=== PATIENT | male | born 1985 | race Caucasian/White ===

== ENCOUNTER → 2016-12-20 | Outpatient (CLI) | payer MEDICAID ==
[~2016-12-20] MED LIST: ABILIFY5 MG PO; ASCORBIC ACID500 MG PO; BACITRACIN--O.0.9 GM TP; FEOSOL325 MG PO; HYDROCODON-ACE1 EAC2 PO; HYDROCODON-ACE1 EAC6 PO; LEXAPRO DPS10 MG PO; SENOKOT S1 TAB PO; VITAMIN D3400 UNIT PO
== END | disposition home or self-care (01) ==
LOC: RAD.S 15:42
DX: M79.1 Myalgia (principal); M51.26 Other intervertebral disc displacement, lumbar region

== ENCOUNTER 2016-12-21 17:14 | Emergency (ER) | payer MEDICAID ==
--- NOTE | 2016-12-29 08:11 | ER ---
ADMIT: 12/21/2016 RM/LOC: ER [facility] MR#: [id number] 2620 [facility] [address] [place] [phone] KENNEDY ROCHA [address] [place] [address] Emergency Room Report SEX: M AGE: 31 : 1985 DATE: 12/21/2016 HISTORY OF PRESENT ILLNESS: A 31-year-old gentleman, who was working around 3:00 this afternoon when a piece of wood flew back. He describes it about a 2- inch square piece of wood flew back and struck him in the right eye. He had blurry vision since then, comes to the Emergency Department for evaluation of the same blurry eye. See T-sheet for remainder of history and physical. I did speak with Dr. Bahena, the business objects analyst, who said he would come in, but it would take approximately 1 hour, I discussed this with the patient. The patient said he did not want to wait for 1 hour, but would follow up with Dr. Bahena tomorrow. Dr. Bahena can provide a home phone number and instructed the patient to call that number at 8:00 tomorrow and he would see him in the office at that time. Once again, the patient elected not to wait in the Emergency Department for Dr. Bahena to arrive stating he was in a hurry to get out of here and would follow up tomorrow with Dr. Bahena in his office. DIAGNOSIS: Eye pain, injury. Sandip Schwartz MD/ [place] JOB #: [id number] CC: Sandip Schwartz MD, Attending Physician UNKNOWN, Family Physician
[2017-02-12] MEDS ORDERED: ABILIFY5 MG PO (11:19)
[2017-02-12] MEDS ORDERED: HYDROCODON-ACE1 EAC2 PO (11:19)
[2017-02-12] MEDS ORDERED: LEXAPRO DPS10 MG PO (11:19)
[2017-02-12] MEDS ORDERED: HYDROCODON-ACE1 EAC6 PO (11:19)
[2017-02-12] MEDS ORDERED: ASCORBIC ACID500 MG PO (11:20)
[2017-02-12] MEDS ORDERED: SENOKOT S1 TAB PO (11:20)
[2017-02-12] MEDS ORDERED: FEOSOL325 MG PO (11:20)
[2017-02-12] MEDS ORDERED: BACITRACIN--O.0.9 GM TP (11:20)
[2017-02-12] MEDS ORDERED: VITAMIN D3400 UNIT PO (11:21)
== END 2016-12-21 19:00 | disposition home or self-care (01) ==
LOC: ER 17:14
DX: S05.91XA Unspecified injury of right eye and orbit, initial encounter (principal); F17.210 Nicotine dependence, cigarettes, uncomplicated; F31.9 Bipolar disorder, unspecified; F41.9 Anxiety disorder, unspecified; Z88.1 Allergy status to other antibiotic agents; Z91.013 Allergy to seafood; W45.8XXA Other foreign body or object entering through skin, initial encounter

== ENCOUNTER → 2017-01-16 | Outpatient (CLI) | payer MEDICAID | END | disposition home or self-care (01) | LOC: RAD.S 09:37 | DX: M54.2 Cervicalgia (principal); R20.0 Anesthesia of skin ==

== ENCOUNTER 2017-01-19 13:36 | Emergency (ER) | payer MEDICAID ==
--- NOTE | 2017-01-25 11:01 | ER ---
ADMIT: 01/19/2017 RM/LOC: ER [facility] MR#: [id number] 2620 [facility] [address] [place] [phone] KENNEDY ROCHA [facility] [place] [address] Emergency Room Report SEX: M AGE: 31 : 1985 DATE: 01/19/2017 ADDENDUM: This is a 31-year-old, white male, coming with epigastric pain. It is right upper quadrant. The ultrasound was negative. His CBC, chemistry, and lipase were negative as well. At this time, his pain is fairly well under control. Also, historical notes he said that his siblings and his mother all had nonfunctioning gallbladders and had to have it taken out. At this time, I said that is still a possibility. We discharged him home with: 1. He is to start taking 300 of Zantac [id number] daily. 2. He is supposed to call the office Saturday and have someone see him so they can continue the workup with HIDA scan to know what they seen fit. Also, we gave him a little GI cocktail to see if this would help as well. He has pain medicines at home as well. I spoke with Dr. Holland about this. The patient understands. CONDITION ON DISCHARGE: Good. nAdrae Lerma MD/ [place] JOB #: [id number] CC: Andrae Lerma MD, Attending Physician Neftaly Rodriguez MD, Family Physician
[2017-02-12] MEDS ORDERED: HYDROCODON-ACE1 EAC6 PO (11:19)
[2017-02-12] MEDS ORDERED: ABILIFY5 MG PO (11:19)
[2017-02-12] MEDS ORDERED: HYDROCODON-ACE1 EAC2 PO (11:19)
[2017-02-12] MEDS ORDERED: LEXAPRO DPS10 MG PO (11:19)
[2017-02-12] MEDS ORDERED: SENOKOT S1 TAB PO (11:20)
[2017-02-12] MEDS ORDERED: ASCORBIC ACID500 MG PO (11:20)
[2017-02-12] MEDS ORDERED: FEOSOL325 MG PO (11:20)
[2017-02-12] MEDS ORDERED: BACITRACIN--O.0.9 GM TP (11:20)
[2017-02-12] MEDS ORDERED: VITAMIN D3400 UNIT PO (11:21)
== END 2017-01-19 18:00 | disposition home or self-care (01) ==
LOC: ER 13:36
DX: R10.11 Right upper quadrant pain (principal); T78.1XXA Other adverse food reactions, not elsewhere classified, initial encounter; Z88.6 Allergy status to analgesic agent

== ENCOUNTER → 2017-02-01 | Outpatient (CLI) | payer MEDICAID | END | disposition home or self-care (01) | LOC: PTH.S 08:12 | DX: Z01.818 Encounter for other preprocedural examination (principal) ==

== ENCOUNTER 2017-02-06 07:47 | Inpatient (IN) | payer MEDICAID ==
[~2017-02-06] VITALS: Ht 170.2 cm; Wt 67.6 kg
--- NOTE | ~2017-02-06 | DS ---
ADMIT: 02/06/2017 RM/LOC: 512 [facility] MR#: [id number] [address] [facility] [address] [place], [place] [phone] KENNEDY HOOD [address] [place] [address] General Discharge Summary SEX: M AGE: 31 : 1985 ADMISSION DATE: 02/06/2017 DISCHARGE DATE: 02/08/2017 SERVICE: Neurosurgery. REASON FOR ADMISSION: 1. Bulging lumbar disc. 2. Bilateral lower extremities numbness. 3. Lumbar facet degeneration. 4. Lower extremity weakness. 5. Status post diskectomy. PROCEDURE: Transforaminal lumbar interbody fusion at lumbar 4-5. HOSPITAL COURSE: Mr. Hood tolerated his procedure well. Postoperatively, he was admitted to the Med/Surg floor for monitoring and care. Postop day #1, he was awake and alert. He was oriented x4. He was afebrile and his vital signs were stable. He was moving all extremities x4 with 5/5 strength. His dressing was clean, dry, and intact. His CORY drain was patent with serosanguineous drainage. His On-Q was patent. He was questioning whether his hydrocodone would be better than the Percocet as he felt he had more relief with the hydrocodone than he was having with Percocet, therefore, he was changed back to his hydrocodone. He was voicing some concerns with his nursing care. He did work with Physical Therapy and Occupational Therapy and tolerated this quite well. He did attempt to get up on his own and reports that he lowered himself to the ground. He denied any additional back pain. Postop day #2, he was awake and alert. He was tearful. He was afebrile and his vital signs were stable. He was moving all extremities x4. His incision was clean, dry, and intact. His On-Q was leaking and was discontinued. His CORY drain was patent with decreased amount of serosanguineous drainage. This was removed without difficulty and 1 Monocryl stitch was applied to the site. He was started on some Lexapro for his tearfulness. He reports the hydrocodone was not enough for his pain, therefore, was discontinued and he was started on some Oxy-IR. His Valium was increased to q.6 hours. He continued to work with Physical Therapy and Occupational Therapy. He was evaluated by the inpatient rehabilitation unit and deemed to be an appropriate candidate for inpatient rehabilitation with a plan to return to his prior function of living status. On the day of discharge, he was deemed medically fit for transfer to the inpatient rehabilitation unit. DISCHARGE CONDITION: Good. MEDICATIONS: Colace 100 mg p.o. b.i.d., milk of magnesia 10 mL p.o. q.a.m., Senokot one tab p.o. b.i.d., Dulcolax 10 mg suppository one rectally q.a.m., bacitracin ointment to his incision q.p.m., Maalox 30 mL p.o. q.6 hours p.r.n., Tylenol 650 mg p.o. q.4 hours p.r.n., Valium 5 mg 1-2 tablets p.o. q.6 hours p.r.n., Tylenol 500 mg p.o. q.i.d., Oxy IR 10 to 30 mg p.o. q.3 hours p.r.n. pain, and Lexapro 10 mg p.o. daily. ADMIT: 02/06/2017 RM/LOC: 512 [facility] MR#: [id number] [address] [phone] KENNEDY HOOD [address] [place] [address] General Discharge Summary SEX: M AGE: 31 : 1985 DISCHARGE INSTRUCTIONS: Per Dr. Mendenhall, he can have a regular diet. He may shower, he should not take any tub baths, he should pat his incision dry. He should not take any NSAIDs. He should not lift anything greater than 15 pounds. He should not use any nicotine. He will call with any questions or concerns including neurological worsening, signs or symptoms of infection, or any other issues. FOLLOWUP: He will follow up in clinic with Ira in 2 weeks on discharge. DISPOSITION: He was discharged home. Total bkxl-ov-zsar time for the discharge planning and care coordination was 30 minutes. Ira Chin APRN / Richard Mendenhall MD / [place] JOB #: [id number] CC: Richard Mendenhall MD, Attending Physician Khanh Gustafson MD, Family Physician
--- NOTE | 2017-02-11 13:27 | OR ---
ADMIT: 02/06/2017 RM/LOC: 512 [facility] MR#: [id number] [address] [phone] KENNEDY ROCHA [address] [place], [place] [address] Operative/Delivery Room Report SEX: M AGE: 31 : 1985 SURGERY DATE: 02/06/2017 SURGEON: Richard Mendenhall MD PREOPERATIVE DIAGNOSIS: Radiculopathy from recurrent herniated nucleus pulposus, L4-L5. POSTOPERATIVE DIAGNOSIS: Radiculopathy from recurrent herniated nucleus pulposus, L4-L5. CLOTH BURLER: Ira Chin APRN PROCEDURES: 1. Wide laminectomy and facetectomy, L4-L5, for decompression of thecal sac posteriorly. 2. Diskectomy, L4-L5, for arthrodesis. 3. Transforaminal lumbar interbody arthrodesis, L4-L5, as well as posterolateral arthrodesis, L4-L5. 4. Placement of bilateral pedicle screws, L4 and L5. 5. Placement of intervertebral structural allograft in the intervertebral space, L4-L5. 6. [place] of autograft through same incision and admixture with allograft with reimplantation into the intervertebral as well as posterolateral spaces. 7. Intraoperative fluoroscopy with physician interpretation of film. 8. Intraoperative neuromonitoring with no change in baseline at the end of the case. DESCRIPTION OF PROCEDURE: After gaining informed consent, the patient was taken to the operative theater, placed under general endotracheal anesthesia in supine position and turned prone on a Rakesh table. All pressure points were purposely padded prior to performing the procedure. He was prepped and draped in the usual sterile fashion. A time-out was utilized to ascertain the correct site and side of surgery as well as other pertinent patient historical information. Counts were obtained in the beginning and end of the case with no change betwixt the two. Antibiotics were given within 1 hour of incision. Fluoroscope was brought into the field and the L4-L5 level was delineated. This coincided with his scar from his prior diskectomy. An incision was fashioned. This was then taken down through the scarred down thoracodorsal fascia, subperiosteally, dissecting very cautiously off the spinous process and lamina and out over top of the facets revealing the facets at L4-L5. Once this was prepared, self-retaining retractors were placed. The high-speed drill was then utilized to drill through the pars interarticularis, and then the posterior elements were resected. This was very cautiously taken off the scar tissue over top of the L4-L5 level revealing limited scarring over top of the dura, but some over top of the disk space on the right. Once this was removed, this was morcellated and prepared for re-implantation later. ADMIT: 02/06/2017 RM/LOC: 512 [facility] MR#: [id number] [address] [place] [phone] KENNEDY ROCHA [address] [place] [address] Operative/Delivery Room Report SEX: M AGE: 31 : 1985 After that was completed, utilizing fluoroscopic guidance, the posterior aspect of the pedicles of L4 and L5 were decorticated, and the pedicle finder was passed through the pedicle into the vertebral body, these were sounded to ensure bony anatomy at 360 degrees and at depth, and vancomycin powder coated screws were placed, and the entire system was placed under distraction. At this point, approaching from the left which was not scarred down, the thecal sac was very cautiously medialized and the posterior longitudinal ligament was discerned. This was incised and then diskectomy was performed utilizing various curettes, rongeurs, rasps, and scrapers to resect as much of the disk as was possible as well as to prep the endplates for bony arthrodesis. Once this was completed, the morcellated autograft was packed into the space until it was full of autograft with no further ability to pack anymore in and then, the structural lordotic allograft spacer was brought into the field and tapped into place as well. CT scan was obtained revealing the instrumentation and fusion, and attention was turned to closure. The four pedicle screws were stimulated showing no sign of breach rhythm and then, the posterior rods and set screws as well as cross connector were placed leaving this under compressive force at the end of the case. Pristine hemostasis was obtained. A CORY drain was daylighted out. The thoracodorsal fascia was closed with simple interrupted 0 Vicryl, simple inverted interrupted 2-0 Vicryl in the hypodermic tissue, and subcuticular 3-0 Stratafix on the skin with Steri-Strips over that. Stab incisions were fashioned. Ropivacaine catheters were passed intramuscularly, loaded with 5 mL of 0.5% Marcaine on each side, and connected to the ropivacaine bulb. Ms. Chin assisted with suction, retraction, and closure at the end of the case. COMPLICATIONS: None. ESTIMATED BLOOD LOSS: Charted. SPECIMEN: Disk. DISPOSITION: Extubated and taken to postanesthesia care unit. Richard Mendenhall MD/ [place] JOB #: [id number] CC: Richard Mendenhall MD, Attending Physician Khanh Gustafson MD, Family Physician
[2017-02-12] MEDS ORDERED: HYDROCODON-ACE1 EAC2 PO (11:19)
[2017-02-12] MEDS ORDERED: HYDROCODON-ACE1 EAC6 PO (11:19)
[2017-02-12] MEDS ORDERED: LEXAPRO DPS10 MG PO (11:19)
[2017-02-12] MEDS ORDERED: ABILIFY5 MG PO (11:19)
[2017-02-12] MEDS ORDERED: BACITRACIN--O.0.9 GM TP (11:20)
[2017-02-12] MEDS ORDERED: SENOKOT S1 TAB PO (11:20)
[2017-02-12] MEDS ORDERED: FEOSOL325 MG PO (11:20)
[2017-02-12] MEDS ORDERED: ASCORBIC ACID500 MG PO (11:20)
[2017-02-12] MEDS ORDERED: VITAMIN D3400 UNIT PO (11:21)
== END 2017-02-08 16:25 | disposition short-term general hospital (02) | DRG 460 ==
LOC: WOR 08:43 → 5MS 08:43
PROVIDERS: ADMIT Neurological Surgery
PROC: 0ST20ZZ Resection of Lumbar Vertebral Disc, Open Approach (ICD-10-PCS; principal; 2017-02-06)
PROC: 0SG00AJ Fusion of Lumbar Vertebral Joint with Interbody Fusion Device, Posterior Approach, Anterior Column, Open Approach (ICD-10-PCS; principal; 2017-02-06)
PROC: 0SG0071 Fusion of Lumbar Vertebral Joint with Autologous Tissue Substitute, Posterior Approach, Posterior Column, Open Approach (ICD-10-PCS; principal; 2017-02-06)
DX: M51.16 Intervertebral disc disorders with radiculopathy, lumbar region (principal); F41.9 Anxiety disorder, unspecified; F17.200 Nicotine dependence, unspecified, uncomplicated; Z85.038 Personal history of other malignant neoplasm of large intestine

== ENCOUNTER 2017-02-08 14:39 | Inpatient (IN) | payer MEDICAID ==
[~2017-02-08] VITALS: Ht 170.2 cm; Wt 64.9 kg
[2017-02-12] MEDS ORDERED: LEXAPRO DPS10 MG PO (11:19)
[2017-02-12] MEDS ORDERED: HYDROCODON-ACE1 EAC6 PO (11:19)
[2017-02-12] MEDS ORDERED: ABILIFY5 MG PO (11:19)
[2017-02-12] MEDS ORDERED: HYDROCODON-ACE1 EAC2 PO (11:19)
[2017-02-12] MEDS ORDERED: SENOKOT S1 TAB PO (11:20)
[2017-02-12] MEDS ORDERED: FEOSOL325 MG PO (11:20)
[2017-02-12] MEDS ORDERED: ASCORBIC ACID500 MG PO (11:20)
[2017-02-12] MEDS ORDERED: BACITRACIN--O.0.9 GM TP (11:20)
[2017-02-12] MEDS ORDERED: VITAMIN D3400 UNIT PO (11:21)
--- NOTE | 2017-02-13 14:37 | CO ---
ADMIT: 02/08/2017 RM/LOC: 601 [facility] MR#: [id number] 2620 [facility] [address] [place] [phone] GWYN ROCHA [facility] [place] [address] Consultation SEX: M AGE: 31 : 1985 DATE OF CONSULTATION: 02/09/2017 ATTENDING PHYSICIAN: Troy Montano MD CONSULTING PHYSICIAN: Ulises Goff MD IDENTIFYING INFORMATION/REASON FOR CONSULT: Gwyn is a 31-year-old, , white male, admitted to us on 02/06/2017 and now status post diskectomy and arthrodesis done on 02/06/[address] Mendenhall. A psych consult is obtained for irritability and depressive symptomatology. He does have a history of bipolar disorder. CHIEF COMPLAINT: "I am in pain." HISTORY OF PRESENT ILLNESS: The chart was evaluated and I got collateral information from the nursing staff. Gwyn when evaluated was in the presence of his stated that he was just physically uncomfortable at this time. Stated that he is used to taking hydrocodone before coming to the hospital and the medications were changed in the last couple of days, something that he does not agree with. He is on Oxy and states that it just makes him more irritable and gives him a drugged feeling. It was told that he will be back on the hydrocodone 10 mg tablets 2 tablets every 4 hours and that itself seems to have been helping. Gwyn was evaluated for his mental health issues and does acknowledge that he has been having problems with his moods and anger for a long time. He talked about how he "laid hands on women", stopped doing that about 5 years ago. also acknowledges that he is doing better than what he used to, but still a lot of mood lability, anger issues where he gets very irrational, irreasonable and difficult to have a conversation with. Gwyn has a lot going on, being , having 5 kids, supporting a job along with the chronic pain issues that he suffers from. He was seeing Solis Sinclair at [facility], but stopped going. He was on the Seroquel which he thought was helping, but at the same time, gained about 70 pounds on it and stopped taking it about 3 months ago. Talked about his symptoms, which are again feeling down, depressed and then other times when he gets overwhelmed and easily frustrated. Also sense of paranoia. Understands that the ideas that he is getting is not accurate, but still cannot help. Feels that people do not mean well, gets a little paranoid. No auditory or visual hallucinations. PSYCHIATRIC HISTORY: Bipolar disorder by history. He was a client at [facility] about 3 months ago, used to see Solis Sinclair. MEDICAL HISTORY: 1. Status post laminectomy, facetectomy, and diskectomy done on 02/06/2017. 2. Chronic back pain. ADMIT: 02/08/2017 RM/LOC: 601 [facility] MR#: [id number] [address] [place] [phone] [place] [address] Consultation SEX: M AGE: 31 : 1985 PERSONAL SOCIAL HISTORY: is available over here as well. They have been together for 5 years. Gwyn does work at the [employer] and is in the [employer]. Talks about how he has a lot of responsibility on him. MENTAL STATUS EXAMINATION: Lying in his bed. Fairly comfortable at this time, but states that he got pain medications not too long ago. Quite irritable, agitated, and wanting to leave until recently. Did calm down and engage well with the interview, describing his past symptoms. Denies any suicidal or homicidal ideations. Just expressed frustration at being here and being in pain and feels that he could be better served going back his home where he has a lot of family support. No clear psychosis but insightful, wants to get better. Speech was clear and understandable. Understands that he makes decisions that are impulsive. DIAGNOSES: 1. Bipolar disorder, other specified by history. 2. Adjustment disorder with depressed mood. 3. Chronic pain. ASSESSMENT AND PLAN: The current frustration likely best explained by the physical discomfort and the pain that the patient is in. However, Gwyn was able to participate fairly well, quite irritable when initially approached, wanting to leave. By the end of the discussion, had come around and okay with initiating some medications for his moods as well. The risks and benefits were discussed and it was decided to utilize Abilify for its exhibit cleaner side- effect profile. At this time, we will start on Abilify 2.5 mg at bedtime and go up to 5 mg at bedtime after 2 days. Continue on the Lexapro, keep addressing pain and the patient would be following up at [facility] upon discharge. The is in agreement and also wants to see a therapist down the line which was highly encouraged. Ulises Goff MD/ [place] JOB #: [id number] CC: Troy Montano MD, Attending Physician Khanh Gustafson MD, Family Physician
--- NOTE | 2017-02-20 09:35 | DS ---
ADMIT: 02/08/2017 RM/LOC: 601 [facility] MR#: [id number] [address] [facility] [address] [place] [phone] KENNEDY ROCHA [address] [place] [address] General Discharge Summary SEX: M AGE: 31 : 1985 ADMISSION DATE: 02/08/2017 DISCHARGE DATE: 02/11/2017 DISCHARGE DIAGNOSIS: Neurologic condition 03.9, other neurologic, M51.16 intravertebral disk disorders with radiculopathy, lumbar region, onset 02/06/2017, comorbid conditions, per initial H and P. Other diagnoses per hospital course below. HOSPITAL COURSE: Please see my initial H and P for details prior to transfer to the IRU. In brief, he had L4-5 severe degenerative disc disease, with recurrent herniation causing radiculopathy and severe pain status post L4-5 decompression and fusion. Pain and bowel regimen were adjusted. Early ambulation, EdemaWear, and SCDs were used for DVT prophylaxis. Psych consult done for bipolar disorder. Dr. Goff saw him over the weekend after transfer to the IRU. Lab was monitored regularly. Valium discontinued. Tried going to OxyIR and gabapentin, but the patient had prior side effects to gabapentin, so we adjusted his usual home dose at home routine of hydrocodone, but a little bit higher dose than what he usually uses at home because of the postop status. I had a phone conversation with the patient on Saturday about this. Psych started Abilify 5 mg at bedtime was the goal and that is why he was on at discharge. B12 deficiency was replaced. Vitamin D deficiency was replaced. Iron deficiency was replaced. The patient complained of carpal tunnel syndrome prior to discharge and so we scheduled him for outpatient followup with me for EMG bilateral upper limbs. Dr. Gustafson and Dr. Goff were notified of discharge and discharge med rec was sent to them. Please see IRU interdisciplinary discharge summary for details regarding progress in therapy. He progressed quicker than expected and so we did a short stay. DISCHARGE DISPOSITION: Home. DISCHARGE MEDICATIONS: Please see discharge med record. He was given a hard script of hydrocodone and #120 to last him for a couple weeks, and he still had his previous fill of hydrocodone just prior to admission to the hospital on that would last him another 2 weeks so he would have a full month until followup with Dr. Gustafson. FOLLOWUP: Dr. Richard Mendenhall on February 22, Dr. Gustafson on 02/27, [facility] on April 04. Follow up with me on February 27 for EMG. Troy Montano MD/ [place] JOB #: [id number] CC:
== END 2017-02-11 16:05 | disposition home or self-care (01) | DRG 560 ==
LOC: 6IRU 16:35
PROVIDERS: ADMIT Physical Medicine & Rehabilitation
PROC: F08Z1FZ Dressing Techniques Treatment using Assistive, Adaptive, Supportive or Protective Equipment (ICD-10-PCS; principal; 2017-02-08)
PROC: F07Z9FZ Gait Training/Functional Ambulation Treatment using Assistive, Adaptive, Supportive or Protective Equipment (ICD-10-PCS; principal; 2017-02-08)
PROC: F08Z2FZ Grooming/Personal Hygiene Treatment using Assistive, Adaptive, Supportive or Protective Equipment (ICD-10-PCS; principal; 2017-02-08)
DX: Z47.89 Encounter for other orthopedic aftercare (principal); D62 Acute posthemorrhagic anemia; F31.9 Bipolar disorder, unspecified; G56.03 Carpal tunnel syndrome, bilateral upper limbs; K59.00 Constipation, unspecified; F43.23 Adjustment disorder with mixed anxiety and depressed mood; E53.8 Deficiency of other specified B group vitamins; E55.9 Vitamin D deficiency, unspecified; G89.18 Other acute postprocedural pain; Z85.038 Personal history of other malignant neoplasm of large intestine; Z91.5 Personal history of self-harm; Z91.81 History of falling; Z98.1 Arthrodesis status